=== PATIENT | female | born 1975 ===

== ENCOUNTER 2017-05-03 10:16 | Emergency (ER) | payer OTHER ==
[~2017-05-03] VITALS: Ht 160 cm; Wt 74.8 kg
[2017-05-03] MEDS ORDERED: KETO10TA2 PO (17:14)
== END 2017-05-03 17:34 | disposition home or self-care (01) ==
LOC: ER 10:16
DX: S81.011A Laceration without foreign body, right knee, initial encounter (principal); S90.02XA Contusion of left ankle, initial encounter; S40.022A Contusion of left upper arm, initial encounter; W18.39XA Other fall on same level, initial encounter; Y93.89 Activity, other specified; Y92.69 Other specified industrial and construction area as the place of occurrence of the external cause; Y99.8 Other external cause status
CPT/HCPCS: G0168; 29515

== ENCOUNTER → 2017-10-01 | Emergency (ER) | payer OTHER ==
[~2017-10-01] VITALS: Ht 160 cm; Wt 72.6 kg
[~2017-10-01] MED LIST: KETO10TA2 PO; PEPCID40 MG PO; ZOFRAN ODT4 MG PO
== END | disposition home or self-care (01) ==
LOC: ER 22:54
DX: K29.70 Gastritis, unspecified, without bleeding (principal)